=== PATIENT | female | born 1940 | race Caucasian/White ===

== ENCOUNTER 2016-09-03 08:24 | Day surgery (SDC) | payer MEDICARE, BC ==
[2016-09-03 08:54] VITALS: RESP 16
[2016-09-03] MEDS ORDERED: DEXAMETHASONE SOD PHOS PF 10 MG/ML SOL IJ ONE (09:09)
[2016-09-03] MEDS ORDERED: LIDOCAINE HCL 1% MPF SOL ONE (09:28)
[2016-09-03 09:56] VITALS: BP 141/61; PULSE 57; TEMP 98.4; O2SAT 99
== END 2016-09-03 10:02 | disposition home or self-care (01) | DRG 552 ==
LOC: SURG 08:24
PROVIDERS: ATTEND Nurse Anesthetist, Certified Registered
DX: M47.26 Other spondylosis with radiculopathy, lumbar region (principal)
CPT/HCPCS: J1100; J2001

== ENCOUNTER → 2016-11-05 | Day surgery (SDC) | payer MEDICARE, BC ==
[2016-11-05 13:28] VITALS: BP 129/55; PULSE 66; RESP 16; O2SAT 98
== END | disposition home or self-care (01) | DRG 951 ==
LOC: SURG 13:11
PROVIDERS: ATTEND Nurse Anesthetist, Certified Registered
DX: Z53.9 Procedure and treatment not carried out, unspecified reason (principal)

== ENCOUNTER 2017-02-19 09:22 | Day surgery (SDC) | payer MEDICARE, BC ==
[2017-02-19] MEDS: DEXAMETHASONE SOD PHOS PF 10 MG/ML SOL IJ ONE ×3 (10:01→10:19)
[2017-02-19] MEDS: BUPIVACAINE HCL 0.25% MPF 10 ML SOL INFIL ONE ×2 (10:02→10:05)
[2017-02-19 10:40] VITALS: BP 149/66; PULSE 60; RESP 16; TEMP 99; O2SAT 97
== END 2017-02-19 10:49 | disposition home or self-care (01) | DRG 552 ==
LOC: SURG 09:22
PROVIDERS: ATTEND Nurse Anesthetist, Certified Registered
DX: M48.062 Spinal stenosis, lumbar region with neurogenic claudication (principal)
CPT/HCPCS: J1100

== ENCOUNTER 2017-11-25 12:55 | Day surgery (SDC) | payer MEDICARE, BC ==
[2017-11-25 13:23] VITALS: TEMP 97.8
[2017-11-25] MEDS ORDERED: DEXAMETHASONE SOD PHOS PF 10 MG/ML SOL IJ ONE (13:25)
[2017-11-25] MEDS ORDERED: BUPIVACAINE HCL 0.5% MPF 10 ML SOL ONE (13:25)
[2017-11-25 14:10] VITALS: RESP 20
[2017-11-25 14:17] VITALS: BP 128/80; PULSE 61; O2SAT 96
== END 2017-11-25 14:30 | disposition home or self-care (01) | DRG 552 ==
LOC: SURG 12:55
PROVIDERS: ATTEND Nurse Anesthetist, Certified Registered
DX: M48.062 Spinal stenosis, lumbar region with neurogenic claudication (principal)
CPT/HCPCS: J1100

== ENCOUNTER 2018-01-21 08:12 | Day surgery (SDC) | payer MEDICARE, BC ==
[2018-01-21] MEDS ORDERED: TRIAMCINOLONE ACETONIDE 40 MG/ML SUS ONE (08:57)
[2018-01-21] MEDS ORDERED: BUPIVACAINE HCL 0.25% MPF 30 ML SOL INFIL ONE (08:58)
[2018-01-21 09:09] VITALS: O2SAT 98
[2018-01-21 09:30] VITALS: BP 163/68; PULSE 61; RESP 20; TEMP 98.6
== END 2018-01-21 09:45 | disposition home or self-care (01) | DRG 554 ==
LOC: SURG 08:12
PROVIDERS: ATTEND Nurse Anesthetist, Certified Registered
DX: M12.9 Arthropathy, unspecified (principal)
CPT/HCPCS: J3300

== ENCOUNTER 2018-02-11 12:53 | Day surgery (SDC) | payer MEDICARE, BC ==
[2018-02-11] MEDS ORDERED: DEXAMETHASONE SOD PHOS PF 10 MG/ML SOL IJ ONE (13:24)
[2018-02-11] MEDS ORDERED: BUPIVACAINE HCL 0.25% MPF 30 ML SOL INFIL ONE (13:24)
[2018-02-11] MEDS ORDERED: LIDOCAINE HCL 1% MPF 30 SOL ONE (13:25)
[2018-02-11] MEDS: TRIAMCINOLONE ACETONIDE 40 MG/ML SUS ONE ×2 (13:29→13:44)
[2018-02-11 13:59] VITALS: BP 139/78; PULSE 62; RESP 20; TEMP 98.7; O2SAT 97
== END 2018-02-11 14:10 | disposition home or self-care (01) | DRG 552 ==
LOC: SURG 12:53
PROVIDERS: ATTEND Nurse Anesthetist, Certified Registered
DX: M99.54 Intervertebral disc stenosis of neural canal of sacral region (principal); M54.5 Low back pain
CPT/HCPCS: 64483; 64484; G0260; J1100; J2001; J3300

== ENCOUNTER 2018-08-31 08:28 | Emergency (ER) | payer BC, MEDICARE, OTHER ==
[2018-08-31] MEDS ORDERED: SODIUM CHLORIDE 0.9% 1000ML 1,000 ML IV NR (09:00)
[2018-08-31 09:19] LABS: BASOPHILS % (AUTO) 1 % (0-3); EOSINOPHILS % (AUTO) 2 % (0-9); HEMATOCRIT 43 % (35-47); HEMOGLOBIN 14.2 gm/dl (12.0-15.5); LYMPHOCYTES % (AUTO) 32.4 % (10-50); MEAN CORPUSCULAR HEMOGLOBIN 28.9 pg (27.0-32.0); MEAN CORPUSCULAR HGB CONC 32.8 gm/dl (32.0-36.0); MEAN CORPUSCULAR VOLUME 88 fL (81-99); MONOCYTES % (AUTO) 6.8 % (0-12); NEUTROPHILS % (AUTO) 57.8 % (37-80)
[2018-08-31 09:31] LABS: INR 1.04 (0.86-1.12)
[2018-08-31 09:33] LABS: ALBUMIN 3.4 gm/dl (3.4-5.0); BILIRUBIN,TOTAL 0.5 mg/dl (0.2-1.0); CALCIUM 8.9 mg/dl (8.5-10.1); CARBON DIOXIDE 28.8 mEq/L (21-32); CREATININE 0.98 mg/dl (0.60-1.00); POTASSIUM 3.6 mMol/L (3.5-5.1)
[2018-08-31 10:18] LABS: BILIRUBIN,URINE NEGATIVE (NEGATIVE); GLUCOSE, URINE (UA) NEGATIVE (NEGATIVE); KETONES,URINE NEGATIVE (NEGATIVE); LEUKOCYTE ESTERASE ,URINE 2+ (NEGATIVE); NITRATE,URINE NEGATIVE (NEGATIVE); OCCULT BLOOD,URINE 1+ (NEG-TRACE); UROBILINOGEN,URINE 0.2 (0.2-1.0 EU)
[2018-08-31 10:29] LABS: APPEARANCE,URINE SL CLOUDY; BACTERIA NEGATIVE (< 1+); COLOR,URINE PALE YELLOW; CRYSTALS NEGATIVE (0-3 AVE/HPF)
[2018-08-31 11:02] VITALS: TEMP 97.3
[2018-08-31 12:23] VITALS: RESP 18
[2018-08-31 12:24] VITALS: BP 154/76; PULSE 70; O2SAT 96
== END 2018-08-31 11:15 | disposition home or self-care (01) | DRG 125 ==
LOC: ED 08:28
DX: H53.33 Simultaneous visual perception without fusion (principal); N39.0 Urinary tract infection, site not specified
CPT/HCPCS: 70450; 71045; 80053; 81001; 85025; 85610; 85730; 87088; 93005; 96365; 99284; 99285